=== PATIENT | male | born 1985 | race Caucasian/White ===

== ENCOUNTER 2017-06-11 16:11 | Emergency (ER) | payer MEDICAID ==
[~2017-06-11] VITALS: Ht 180.3 cm; Wt 68.2 kg
[~2017-06-11 16:11] MED LIST: ALPR-434 PO; AMOX500T10 PO; CEPH500C24 PO; CEPH500T7 PO; CHLO118L6 TP; CLIN300C99 PO; DICL-192 PO; DOCU-416 PO; HYDR-317 PO; HYDR-319 PO; HYDR-4305 PO; HYDR-4309 PO; IBU600 PO; IBU800 PO; IBUP800T37 PO; KET10 PO; LOR5 PO; MULT-999 PO; NAPR-1043 PO; NAPR-724 PO; NAPR220C12 PO; ONDA4TAB PO; OXYC-865 PO; OXYC-869 PO; OXYC10TA19 PO; PER PO; PROM-110 PO; SULF-198 PO; TRA50 PO; TRAM-420 PO
[2017-06-11 16:16] VITALS: BP 134/85
--- NOTE | 2017-06-11 16:20 | ER Report ---
History and Physical Time Seen By MD: 16:19 HPI/ROS CHIEF COMPLAINT: Dental pain HISTORY OF PRESENT ILLNESS: This is a 32-year-old male who presents to the emergency department for dental pain. Patient states that he was or her in January for the same complaint and stated that he did not follow up with his dentist at that time. Two days ago he developed some right upper molar pain that progressively getting worse. He's been taking Advil at home to help with the discomfort, however the pain has just been increasing. Patient states he has had a little bit of nausea related to the discomfort. No vomiting. No headaches, no aches, no chills, no diarrhea, no visual changes. REVIEW OF SYSTEMS: Respiratory: No cough, no dyspnea. Cardiovascular: No chest pain, no palpitations. Gastrointestinal: No vomiting, no abdominal pain. Musculoskeletal: No back pain. Dental: As above. Allergies: Coded Allergies: No Known Drug Allergies (Verified , 06/11/17) Home Meds Active Scripts Ondansetron (ZOFRAN ODT) 4 Mg Tab.rapdis, 4 MG PO Q6H Y for NAUSEA/VOMITING, # 20 TAB.ANDREI Prov:CHANDU BABIN SHIPWRIGHT APPRENTICE-BC 06/11/17 Amoxicillin (AMOXICILLIN) 500 Mg Capsule, 1 CAP PO Q8H, #30 CAPSULE Prov:CHANDU BABIN SHIPWRIGHT APPRENTICE-BC 06/11/17 Discontinued Scripts Diclofenac Sodium (DICLOFENAC SODIUM) 50 Mg Tablet.dr, 50 MG PO TID Y for prn, # 15 TAB Prov:LULU YU PA-C 02/16/17 Amoxicillin 500 Mg Tab (AMOXICILLIN 500 MG TAB) 500 Mg Tablet, 1 TAB PO Q8H, # 30 TAB Prov:LULU YU PA-C 02/16/17 Past Medical/Surgical History Patient has a past medical and surgical history of varicocele, back pain, marijuana use, dental pain. Reviewed Nurses Notes: Yes Hx Smoking: Yes (10 years) Smoking Status: Current: Every Day Smoker Exposure to Second Hand Smoke?: No Hx Substance Use Disorder: No (MARIJUANA IN THE PAST) Hx Alcohol Use: Yes Constitutional Vital Sign - Last 24 Hours 06/11/17 16:16 Temp 98.0 Pulse 70 Resp 16 B/P (MAP) 134/85 Pulse Ox 98 O2 Delivery Room Air Physical Exam General Appearance: The patient is alert, has no immediate need for airway protection and no current signs of toxicity. Eyes: Pupils equal and round no injection. Respiratory: Chest is non tender, lungs are clear to auscultation. Cardiac: regular rate and rhythm, no murmurs, clicks or rubs. Gastrointestinal: Abdomen is soft and non tender, no masses, bowel sounds normal. Musculoskeletal: Neck: Neck is supple and non tender. No lymphadenopathy. Extremities have full range of motion and are non tender. Skin: No rashes or lesions. Dental: Right upper back molar has a hole, missing a filling. No edema or erythema along the gumline. Poor dentition, with dental caries. Upper gumline painful with palpation. DIFFERENTIAL DIAGNOSIS: After history and physical exam differential diagnosis was considered for dental caries, dental abscess, gingivitis. Medical Decision Making ED Course/Re-evaluation ED Course The patient was admitted to room. History and physical were obtained. Differential diagnoses were considered. Patient was offered a dental block which he elected to do as noted below. The patient tolerated the block well. Patient was given a prescription for amoxicillin and Zofran and told he must follow-up with a dental provider this week for evaluation and possible extraction of the right upper molar. Patient and his girlfriend expressed understanding and questions or concerns and were discharged home. 06/11/2017 5:00:15 pm the patient was given the option of a dental block which he elected to do. The right upper molar was blocked with 2ml's of 0.5% bupivacaine. Following the injection patient stated that he did have relief. Decision to Disposition Date: Jun 11, 2017 Decision to Disposition Time: 16:44 Depart Departure Latest Vital Signs Vital Signs Date Time Temp Pulse Resp B/P (MAP) Pulse Ox O2 Delivery O2 Flow Rate FiO2 06/11/17 16:16 98.0 70 16 134/85 98 Room Air Impression: Primary Impression: Pain, dental Condition: Improved Disposition: HOME OR SELF-CARE New Scripts Ondansetron (ZOFRAN ODT) 4 Mg Tab.rapdis 4 MG PO Q6H Y for NAUSEA/VOMITING, #20 TAB.ANDREI Prov: CHANDU BABIN SHIPWRIGHT APPRENTICE-BC 06/11/17 Amoxicillin (AMOXICILLIN) 500 Mg Capsule 1 CAP PO Q8H, #30 CAPSULE Prov: CHANDU BABIN SHIPWRIGHT APPRENTICE-BC 06/11/17 Patient Instructions: Dental Caries (GEN) Additional Instructions: Drink plenty of water. Get plenty of rest. Take Ibuprofen 800mg every 8 hours as needed for pain. Complete the antibiotics. Take Zofran for nausea. Try the dental wax for comfort. You must follow up with a dentist this week for further evaluation. You have been given a list of local dental providers. May return to the ED for worsening symptoms. CHANDU BABIN-MONI Jun 11, 2017 16:20
[2017-06-11] MEDS ORDERED: ONDA4TAB PO (16:52)
[2017-06-11] MEDS ORDERED: AMOX-362 PO (16:52)
== END 2017-06-11 17:00 | disposition home or self-care (01) ==
LOC: ER 16:15
DX: K08.89 Other specified disorders of teeth and supporting structures (principal)
CPT/HCPCS: 99283